=== PATIENT | female | born 1945 | race Caucasian/White ===

== ENCOUNTER 2017-04-08 16:55 | Emergency (ER) | payer OTHER ==
[2017-04-08 17:03] VITALS: BP 122/78; PULSE 58; TEMP 98.3; BMI 29.2
--- NOTE | 2017-04-08 17:16 | PDOC ---
History of Present Illness <Annalisa Mata - Last Filed: 04/08/17 18:22> - History of Present Illness Initial Comments: 04/08/17 18:27 "The patient is a 72 year old female, with a significant past medical history of HTN, acid reflux, and kyphoscoliosis, who was BIBA from [facility] to the emergency department with right ankle pain and swelling s/p fall. Patient reports she was coming out of the restroom when she slipped and fell landing on her buttocks. Patient is currently complaining of right ankle pain and swelling. Pt was able to ambulate with assistance after the fall. She also complains of a slight headache without nausea or vomiting. She denies hitting her head or LOC. She denies recent fevers, chills, headache or dizziness. She denies recent nausea, vomit, diarrhea or constipation. She denies recent dysuria, frequency, urgency or hematuria. She denies recent chest pain or shortness of breath. Allergies: Lisinopril Social history: Nonsmoker. Denies EtOH use and recreational drug use. " <Matt Phillips - Last Filed: 04/08/17 18:52> - General Chief Complaint: Pain, Acute Stated Complaint: RIGHT ANKLE PAIN Time Seen by Provider: 04/08/17 17:01 Past History <Annalisa Mata - Last Filed: 04/08/17 18:22> - Past Medical History Cardiac Disorders: Yes (BRADYCARDIA) Hypercholesterolemia: Yes Psychiatric Problems: Yes - Suicide/Smoking/Psychosocial Hx Smoking History: Never smoked Hx Alcohol Use: No Drug/Substance Use Hx: No Substance Use Type: None <Matt Phillips - Last Filed: 04/08/17 18:52> - Past Medical History Allergies/Adverse Reactions: Allergies Allergy/AdvReac Type Severity Reaction Status Date / Time lisinopril Allergy Verified 04/08/17 16:57 Review of Systems - Review of Systems Comments:: 04/08/17 17:13 "GENERAL/CONSTITUTIONAL: No fever or chills. No weakness. HEAD, EYES, EARS, NOSE AND THROAT: No change in vision. No ear pain or discharge. No sore throat. CARDIOVASCULAR: No chest pain or shortness of breath. RESPIRATORY: No cough, wheezing, or hemoptysis. GASTROINTESTINAL: No nausea, vomiting, diarrhea or constipation. GENITOURINARY: No dysuria, frequency, or change in urination. MUSCULOSKELETAL: + R ankle pain, No neck or back pain. SKIN: No rash NEUROLOGIC: No headache, vertigo, loss of consciousness, or change in strength/ sensation. ENDOCRINE: No increased thirst. No abnormal weight change. HEMATOLOGIC/LYMPHATIC: No anemia, easy bleeding, or history of blood clots. ALLERGIC/IMMUNOLOGIC: No hives or skin allergy. " <AlanMatt - Last Filed: 04/08/17 18:52> *Physical Exam - Vital Signs Last Vital Signs Temp Pulse Resp BP Pulse Ox 98.3 F 58 L 16 122/78 96 04/08/17 16:57 04/08/17 16:57 04/08/17 16:57 04/08/17 16:57 04/08/17 16:57 <Annalisa Mata - Last Filed: 04/08/17 18:22> - Vital Signs Last Vital Signs Temp Pulse Resp BP Pulse Ox 98.3 F 58 L 16 122/78 96 04/08/17 16:57 04/08/17 16:57 04/08/17 16:57 04/08/17 16:57 04/08/17 16:57 - Physical Exam Comments: 04/08/17 17:13 "GENERAL: Awake, alert, and fully oriented, in no acute distress HEAD: No signs of trauma EYES: PERRLA, EOMI, sclera anicteric, conjunctiva clear ENT: Auricles normal inspection, hearing grossly normal, nares patent, oropharynx clear without exudates. Moist mucosa NECK: severe kyphoscoliosis, Nontender, no stepoffs, Normal ROM, supple, no lymphadenopathy, JVD, or masses LUNGS: Breath sounds equal, clear to auscultation bilaterally. No wheezes, and no crackles HEART: Regular rate and rhythm, normal S1 and S2, no murmurs, rubs or gallops ABDOMEN: Soft, nontender, normoactive bowel sounds. No guarding, no rebound. No masses EXTREMITIES: R ankle with mild tenderness posterior to lateral malleolus, no obvious deformity, L ankle wnl, full range of motion of all extremities NEUROLOGICAL: Cranial nerves II through XII intact. 5/5 strength and sensation in all extremities, Normal speech, normal gait SKIN: Warm, Dry, normal turgor, no rashes or lesions noted. " <Matt Phillips - Last Filed: 04/08/17 18:52> Procedures - Splinting Splint Location: Right: Knee Pre-Proc Neuro Vasc Exam: normal Hand-Made Type: fiberglass Splint Type: Yes: Short Leg Post-Proc Neuro Vasc Exam: normal [place] Bandage: yes, 3" Complications: No Post splint xray: No <Matt Phillips - Last Filed: 04/08/17 18:52> ED Treatment Course - RADIOLOGY Radiology Studies Ordered: Category Date Time Status HEAD CT WITHOUT CONTRAST [CT] Stat CT Scan 04/08/17 17:11 Ordered ANKLE & FOOT-RIGHT* [RAD] Stat Radiology 04/08/17 17:11 Ordered CHEST PA & LAT [RAD] Stat Radiology 04/08/17 17:10 Ordered PELVIS [RAD] Stat Radiology 04/08/17 17:10 Ordered <Matt Phillips - Last Filed: 04/08/17 18:52> Medical Decision Making - Medical Decision Making 04/08/17 17:14 72 F presenting with R ankle pain s/p mechanical fall. Pt with full ROM and no obvious deformity. Possible ankle fx vs sprain. Pt with no signs of head trauma or c spine injury. - XR ankle, chest, pelvis - CT head 04/08/17 18:49 XR shows R distal fibula fx with minimal displacement. Pt placed in short-leg posterior splint. Instructions given to f/u with orthopedics clinic. Dispo pending [facility]. Case discussed in detail with oncoming Emergency Physician including history, physical exam and ancillary studies. Oncoming Emergency Physician has assumed care for the patient and will complete the evaluation and treatment. Patient is aware of the plan. <Matt Phillips - Last Filed: 04/08/17 18:52> *DC/Admit/Observation/Transfer - Attestations Scribe Attestion: 04/08/17 18:22 Documentation prepared by Annalisa Mata, acting as medical surgery nurse for Matt Phillips MD. <Annalisa Mata - Last Filed: 04/08/17 18:22> <Matt Phillips - Last Filed: 04/08/17 18:52> Diagnosis at time of Disposition: Fracture of lateral malleolus - Discharge Dispostion Condition at time of disposition: Stable - Referrals Referrals: Matt Vieyra MD [Staff Physician] - - Patient Instructions Printed Discharge Instructions: DI for Ankle Fracture Additional Instructions: You have an ankle fracture. You must follow up with an orthopedic surgeon as soon as possible. Call the number provided to make an appointment with our orthopedics clinic this week. If you experience worsening pain, swelling, numbness, or any other concerning symptoms, return to the ER immediately.
--- NOTE | 2017-04-08 20:19 | PDOC ---
*Physical Exam - Vital Signs Last Vital Signs Temp Pulse Resp BP Pulse Ox 98.3 F 58 L 16 122/78 96 04/08/17 16:57 04/08/17 16:57 04/08/17 16:57 04/08/17 16:57 04/08/17 16:57 Progress Note - Progress Note Progress Note: CT of head interpreted by Dr. Barnhart: No gross evidence of acute intracranial pathology. Incidental note of a 7 mm density in right external auditory canal (thought to likely represent debris but correlation with ENT suggested) Examination of right ear reveals cerumen in the external auditory canal. Results discussed with the patient. She states that she has an ear nose and throat doctor in [place]. She should follow-up with orthopedic doctor ( Dr. Vieyra referral given) as well as her ENT doctor *DC/Admit/Observation/Transfer Diagnosis at time of Disposition: Lateral malleolar fracture - Discharge Dispostion Disposition: HOME Condition at time of disposition: Stable - Referrals Referrals: Matt Vieyra MD [Staff Physician] - - Patient Instructions Printed Discharge Instructions: DI for Ankle Fracture Additional Instructions: You have an ankle fracture. You must follow up with an orthopedic surgeon as soon as possible. Call the number provided to make an appointment with our orthopedics clinic this week. Do not attend day program until seen by orthopedist Tylenol as needed for pain/walker as needed for ambulation If you experience worsening pain, swelling, numbness, or any other concerning symptoms, return to the ER immediately. Followup with your ear/nose/throat doctor to evaluate ear canals - Post Discharge Activity
== END 2017-04-08 20:28 | disposition home or self-care (01) ==
LOC: FER 16:55
PROC: 2W3QX1Z Immobilization of Right Lower Leg using Splint (ICD-10-PCS; principal; 2017-04-08)
DX: S82.61XA Displaced fracture of lateral malleolus of right fibula, initial encounter for closed fracture (principal); W18.39XA Other fall on same level, initial encounter; Y93.89 Activity, other specified; Y92.129 Unspecified place in nursing home as the place of occurrence of the external cause; I10 Essential (primary) hypertension; K21.9 Gastro-esophageal reflux disease without esophagitis; F99 Mental disorder, not otherwise specified; E78.00 Pure hypercholesterolemia, unspecified
CPT/HCPCS: 29515; 70450-TC; 71010-TC; 72170-TC; 73610-TC-RT; 73630-TC-RT; 99281-25

== ENCOUNTER 2023-09-02 19:24 | Inpatient (IN) | payer OTHER ==
[2023-09-02 19:47] VITALS: BMI 30.2
[2023-09-02 22:15] LABS: HEMATOCRIT 39.9 % (32.4-45.2); HEMOGLOBIN 13.1 GM/dL (10.7-15.3); MCH 28.8 pg (25.7-33.7); MCHC 32.8 g/dl (32.0-36.0); MEAN PLT VOLUME 6.1 fl (7.5-11.1); PLATELET COUNT 210 10^3/uL (134-434); RBC 4.54 M/mm3 (3.60-5.2); RDW 14.1 % (11.6-15.6)
[2023-09-02 22:19] LABS: POTASSIUM 4.3 mmol/L (3.5-5.1)
[2023-09-02 22:21] LABS: CALCIUM 9.4 mg/dL (8.5-10.1)
[2023-09-02 22:22] LABS: ALBUMIN 3.5 g/dl (3.4-5.0); BLOOD UREA NITROGEN 17.4 mg/dL (7-18)
[2023-09-02 22:25] LABS: CREATININE 0.9 mg/dL (0.55-1.3)
[2023-09-02 22:26] LABS: BILIRUBIN,TOTAL 0.4 mg/dL (0.2-1)
[2023-09-02 22:41] LABS: ANISOCYTOSIS 1+; MACROCYTOSIS 0; OVALOCYTE 1+
[2023-09-03 00:43] LABS: INR 1.01 (0.83-1.09); PROTHROMBIN TIME (PATIENT) 11.7 SEC (9.7-13.0)
[2023-09-03 00:45] LABS: ACTIVATED PTT 27.7 SECONDS (25.2-36.5)
[2023-09-03] MEDS: AMPICILLIN NA/SULBACTAM NA 1.5 GM in SODIUM CHLORIDE 100 ML IVPB ONE (01:23)
[2023-09-03] MEDS: AMPICILLIN NA/SULBACTAM NA 3 GM in DEXTROSE 5%-WATER 100 ML IVPB STA (01:28)
[2023-09-03] MEDS ORDERED: AMPICILLIN NA/SULBACTAM NA 3 GM/100 ML BAG IVPB ONE ×4 (01:29→19:54)
[2023-09-03] MEDS: DEXTROSE 5%-0.45% SALINE 1,000 ML IV SCH (04:09)
[2023-09-03] MEDS ORDERED: levETIRAcetam 500 MG/5 ML INJECTION VIAL IVPB ONE ×2 (09:01→19:53)
[2023-09-03] MEDS ORDERED: ACETAMINOPHEN INJECTION 100 ML IVPB ONE ×2 (09:01→19:54)
[2023-09-03] MEDS ORDERED: PANTOPRAZOLE SODIUM 40 MG VIAL ONE (09:02)
[2023-09-03] MEDS: AMPICILLIN NA/SULBACTAM NA 3 GM in DEXTROSE 5%-WATER 100 ML IVPB SCH (09:20)
[2023-09-03] MEDS: ACETAMINOPHEN 1000 MG/100 ML BAG IVPB PRN (09:25)
[2023-09-03] MEDS: levETIRAcetam 500 MG/5 ML INJECTION VIAL IVPB SCH (10:19)
[2023-09-03] MEDS: PANTOPRAZOLE SODIUM 40 MG VIAL IVPUSH SCH (10:19)
[2023-09-03 12:01] LABS: BASO % 0.3 % (0-2.0); EOS % 0.2 % (0-4.5); HEMATOCRIT 37.3 % (32.4-45.2); HEMOGLOBIN 12.3 GM/dL (10.7-15.3); MCH 29.1 pg (25.7-33.7); MEAN CELL VOLUME 88.2 fl (80-96); MEAN PLT VOLUME 6.7 fl (7.5-11.1); MONO % 6.1 % (3.8-10.2); NEUT % 83.4 % (42.8-82.8); PLATELET COUNT 186 10^3/uL (134-434); RBC 4.23 M/mm3 (3.60-5.2); RDW 14.2 % (11.6-15.6); WHITE BLOOD COUNT 7.2 K/mm3 (4.0-10.0)
[2023-09-03 12:12] LABS: POTASSIUM 3.9 mmol/L (3.5-5.1)
[2023-09-03 12:25] LABS: BLOOD UREA NITROGEN 18.9 mg/dL (7-18); CALCIUM 9.2 mg/dL (8.5-10.1)
[2023-09-03 12:28] LABS: CREATININE 0.6 mg/dL (0.55-1.3); PHOSPHOROUS 3.4 mg/dL (2.5-4.9)
[2023-09-03 12:30] LABS: MAGNESIUM 2.2 mg/dL (1.8-2.4)
[2023-09-03] MEDS: ALBUTEROL SO4 2.5/IPRATROPIUM 0.5 INH SOL 3 ML VIAL.NEB. NEB SCH (15:00)
[2023-09-03] MEDS ORDERED: ALBUTEROL SO4 2.5/IPRATROPIUM 0.5 INH SOL 3 ML VIAL.NEB. NEB ONE ×2 (15:01→19:53)
[2023-09-04] MEDS ORDERED: AMPICILLIN NA/SULBACTAM NA 3 GM/100 ML BAG IVPB ONE ×2 (02:32→08:03)
[2023-09-04 07:15] LABS: BASO % 0.4 % (0-2.0); EOS % 0.2 % (0-4.5); HEMATOCRIT 36.4 % (32.4-45.2); LYMPH % 11.6 % (8-40); MCH 29.2 pg (25.7-33.7); MCHC 33.1 g/dl (32.0-36.0); MEAN CELL VOLUME 88.2 fl (80-96); MEAN PLT VOLUME 6.3 fl (7.5-11.1); MONO % 7.4 % (3.8-10.2); NEUT % 80.4 % (42.8-82.8); PLATELET COUNT 169 10^3/uL (134-434); RBC 4.12 M/mm3 (3.60-5.2); RDW 13.9 % (11.6-15.6); WHITE BLOOD COUNT 6.7 K/mm3 (4.0-10.0)
[2023-09-04 07:42] LABS: POTASSIUM 3.6 mmol/L (3.5-5.1)
[2023-09-04 07:45] LABS: CALCIUM 8.5 mg/dL (8.5-10.1)
[2023-09-04 07:46] LABS: BLOOD UREA NITROGEN 15.8 mg/dL (7-18)
[2023-09-04 07:49] LABS: CREATININE 0.5 mg/dL (0.55-1.3)
[2023-09-04 07:50] LABS: BILIRUBIN,TOTAL 0.5 mg/dL (0.2-1)
[2023-09-04] MEDS ORDERED: ALBUTEROL SO4 2.5/IPRATROPIUM 0.5 INH SOL 3 ML VIAL.NEB. NEB ONE (08:01)
[2023-09-04] MEDS: ENOXAPARIN NA (PORCINE) 40 MG/0.4 ML DISP.SYRIN SQ SCH (10:49)
[2023-09-04] MEDS: lamoTRIgine 100 MG TABLET PO SCH (21:59)
[2023-09-04] MEDS: ARIPiprazole 15 MG TABLET PO SCH (21:59)
[2023-09-04] MEDS: DOCUSATE SODIUM 100 MG CAPSULE (FP) PO SCH (21:59)
[2023-09-04] MEDS: ATORVASTATIN CA 10 MG TABLET (FP) PO SCH (22:00)
[2023-09-04] MEDS: levETIRAcetam 500 MG TABLET (FP) PO SCH (22:01)
[2023-09-04] MEDS: TOPIRAMATE 100 MG TABLET PO SCH (22:01)
[2023-09-05] MEDS: POTASSIUM CHLORIDE TABS 20 MEQ TABLET.ER (FP) PO SCH (10:17)
[2023-09-05] MEDS: PANTOPRAZOLE 40 MG TABLET PO SCH (10:17)
[2023-09-05] MEDS: ASPIRIN COATED 81 MG TABLET.EC PO SCH (10:17)
[2023-09-05] MEDS: FUROSEMIDE 40 MG TABLET (FP) PO SCH (10:17)
[2023-09-05] MEDS: POLYETHYLENE GLYCOL (HEALTHYLAX) 3350 17 GM PACKET PO SCH (21:58)
[2023-09-06 14:53] VITALS: RESP 18
[2023-09-06 20:15] VITALS: BP 102/60; PULSE 72; TEMP 97.4
== END 2023-09-07 04:37 | DRG 178 ==
LOC: JER 19:24 → JERBED 09-03 00:01 → OBSVTOIN 09-04 08:40 → J4S 09-04 09:52
PROVIDERS: ADMIT Internal Medicine; ATTEND Internal Medicine
DX: J69.0 Pneumonitis due to inhalation of food and vomit (principal); I24.89 Other forms of acute ischemic heart disease; T17.500A Unspecified foreign body in bronchus causing asphyxiation, initial encounter; E78.5 Hyperlipidemia, unspecified; I10 Essential (primary) hypertension; G40.909 Epilepsy, unspecified, not intractable, without status epilepticus; F20.9 Schizophrenia, unspecified; K21.9 Gastro-esophageal reflux disease without esophagitis; F03.90 Unspecified dementia, unspecified severity, without behavioral disturbance, psychotic disturbance, mood disturbance, and anxiety; E04.1 Nontoxic single thyroid nodule; F32.A Depression, unspecified; M84.48XG Pathological fracture, other site, subsequent encounter for fracture with delayed healing; K44.9 Diaphragmatic hernia without obstruction or gangrene; R79.89 Other specified abnormal findings of blood chemistry; Z99.3 Dependence on wheelchair; Z85.3 Personal history of malignant neoplasm of breast
CPT/HCPCS: 36415; 70450-TC; 70490-TC; 71250-TC; 74230-TC-FY; 80048; 80053; 83735; 84100; 84484; 85025; 85610; 85730; 86850; 86900; 86901; 87635; 92611-GN; 93005; 93010; 94640; 99285-25; G0378; J0131

== ENCOUNTER 2024-09-06 11:46 | Inpatient (IN) | payer OTHER ==
[2024-09-06 13:07] LABS: VENOUS BASE EXCESS -3.1 mmol/L (-2-2); VENOUS O2 SATURATION 95.4 % (70-80); VENOUS PCO2 40.6 mmHg (38-52); VENOUS PH 7.355 (7.310-7.410)
[2024-09-06] MEDS ORDERED: ACETAMINOPHEN INJECTION 100 ML ONE (13:14)
[2024-09-06] MEDS: SODIUM CHLORIDE 0.9% 500 ML INFUS.BAG IV ONE ×2 (13:15→14:24)
[2024-09-06 13:20] LABS: HEMATOCRIT 34.9 % (32.4-45.2); HEMOGLOBIN 11.5 GM/dL (10.7-15.3); MCHC 32.8 g/dl (32.0-36.0); MEAN CELL VOLUME 85.4 fl (80-96); MEAN PLT VOLUME 6.8 fl (7.5-11.1); PLATELET COUNT 265 10^3/uL (134-434); RBC 4.09 M/mm3 (3.60-5.2); RDW 14.8 % (11.6-15.6); WHITE BLOOD COUNT 16.4 K/mm3 (4.0-10.0)
[2024-09-06 13:23] LABS: INR 1.09 (0.83-1.09); PROTHROMBIN TIME (PATIENT) 11.9 SEC (9.7-13.0)
[2024-09-06 13:25] LABS: ACTIVATED PTT 30.3 SECONDS (25.2-36.5)
[2024-09-06] MEDS: ACETAMINOPHEN 1000 MG/100 ML BAG IVPB ONE (13:33)
[2024-09-06 13:44] LABS: CHLORIDE 111 mmol/L (98-107); SODIUM 144 mmol/L (136-145)
[2024-09-06 13:45] LABS: ANISOCYTOSIS 0; MACROCYTOSIS 0
[2024-09-06 13:46] LABS: CALCIUM 8.5 mg/dL (8.5-10.1)
[2024-09-06 13:47] LABS: ALBUMIN 3.1 g/dl (3.4-5.0); BLOOD UREA NITROGEN 35.9 mg/dL (7-18); CO2 24 mmol/L (21-32); GLUCOSE,RANDOM 120 mg/dL (74-106)
[2024-09-06 13:50] LABS: ANION GAP 9 mmol/L (4-13); CREATININE 0.8 mg/dL (0.55-1.3); POTASSIUM 2.9 mmol/L (3.5-5.1); SGOT/AST 30 U/L (15-37); SGPT/ALT 21 U/L (13-61)
[2024-09-06 13:51] LABS: BILIRUBIN,TOTAL 0.3 mg/dL (0.2-1)
[2024-09-06 13:52] LABS: TOT PROT 6.7 g/dl (6.4-8.2)
[2024-09-06 13:53] LABS: ALK PHOS 94 U/L (45-117)
[2024-09-06] MEDS ORDERED: PIPERACILLIN/TAZOB 3.375 GM 3.375 GM/50 ML BAG IVPB ONE ×2 (14:01→20:23)
[2024-09-06] MEDS: PIPERACILLIN/TAZOB 3.375 GM 3.375 GM in DEXTROSE 5%-WATER - 50 ML IVPB ONE (14:11)
[2024-09-06] MEDS: KCL 10 MEQ IVPB 10 MEQ/100 ML INFUS.BAG IVPB SCH ×2 (14:25→15:55)
[2024-09-06] MEDS ORDERED: PIPERACILLIN/TAZOB 3.375 GM 3.375 GM in DEXTROSE 5%-WATER - 50 ML IVPB SCH (18:00)
[2024-09-06] MEDS: D5-1/2NS+10 MEQ KCL - 10 MEQ/1,000 ML INFUS.BAG IV SCH (20:08)
[2024-09-06 20:21] LABS: EPI CELLS 12 /uL (0-25.1); HYALINE CASTS 1 /uL (0-3.1); PH,URINE 5.5 (5.0-8.0); URINE APPEARANCE TURBID; URINE BACTERIA 4134 /uL (0-1359); URINE BILIRUBIN NEGATIVE (NEGATIVE); URINE COLOR YELLOW; URINE GLUCOSE (UA) NEGATIVE (NEGATIVE); URINE KETONE NEGATIVE (NEGATIVE); URINE LEUK ESTERASE 2+ (NEGATIVE); URINE NITRITE POSITIVE (NEGATIVE); URINE PROTEIN 1+ (NEGATIVE); URINE UROBILINOGEN 0.2 mg/dL (0.2-1.0); URINE WBC 2724 /uL (0-25.8)
[2024-09-06] MEDS: PIPERACILLIN/TAZOB 3.375 GM 3.375 GM in DEXTROSE 5%-WATER - 50 ML IVPB SCH (20:30)
[2024-09-06] MEDS: CEFTRIAXONE 1 GM in DEXTROSE 5%-WATER - 100 ML IVPB ONE (20:31)
[2024-09-06 21:06] LABS: URINE RBC 40.1 /uL (0-23.9)
[2024-09-06] MEDS ORDERED: levETIRAcetam 500 MG/5 ML INJECTION VIAL IVPB ONE (21:20)
[2024-09-06] MEDS: levETIRAcetam 500 MG/5 ML INJECTION VIAL IVPB SCH (21:28)
[2024-09-06] MEDS: AZITHROMYCIN IVPB 500 MG in DEXTROSE 5%-WATER - 250 ML IVPB ONE (21:30)
[2024-09-07] MEDS ORDERED: LORazepam 2 MG/ML SDV VIAL ONE (02:06)
[2024-09-07] MEDS: LORazepam 2 MG/ML SDV VIAL IVPUSH ONE (02:14)
[2024-09-07 07:58] LABS: HEMATOCRIT 30.3 % (32.4-45.2); MCH 28.6 pg (25.7-33.7); MEAN CELL VOLUME 86.7 fl (80-96); MEAN PLT VOLUME 6.6 fl (7.5-11.1); PLATELET COUNT 226 10^3/uL (134-434); RDW 15.1 % (11.6-15.6); WHITE BLOOD COUNT 11.2 K/mm3 (4.0-10.0)
[2024-09-07 08:18] LABS: CHLORIDE 114 mmol/L (98-107); SODIUM 146 mmol/L (136-145)
[2024-09-07 08:20] LABS: CALCIUM 8.4 mg/dL (8.5-10.1)
[2024-09-07 08:21] LABS: ALBUMIN 2.8 g/dl (3.4-5.0); BLOOD UREA NITROGEN 28.7 mg/dL (7-18); CO2 24 mmol/L (21-32); GLUCOSE,RANDOM 107 mg/dL (74-106)
[2024-09-07 08:24] LABS: ANION GAP 7 mmol/L (4-13); CREATININE 0.5 mg/dL (0.55-1.3); POTASSIUM 2.7 mmol/L (3.5-5.1); SGOT/AST 30 U/L (15-37); SGPT/ALT 21 U/L (13-61)
[2024-09-07 08:25] LABS: BILIRUBIN,TOTAL 0.3 mg/dL (0.2-1)
[2024-09-07 08:27] LABS: ALK PHOS 81 U/L (45-117)
[2024-09-07] MEDS: POTASSIUM CHLORIDE ORAL LIQUID 20 MEQ/15 ML PO ONE ×2 (09:00→17:23)
[2024-09-07] MEDS: KCL 10 MEQ IVPB 10 MEQ/100 ML INFUS.BAG IVPB SCH ×2 (09:03→17:23)
[2024-09-07] MEDS: ENOXAPARIN NA (PORCINE) 40 MG/0.4 ML DISP.SYRIN SQ SCH (10:18)
[2024-09-07 13:21] LABS: MAGNESIUM 2.1 mg/dL (1.8-2.4)
[2024-09-07 16:11] LABS: CHLORIDE 114 mmol/L (98-107); SODIUM 143 mmol/L (136-145)
[2024-09-07 16:13] LABS: CALCIUM 8.3 mg/dL (8.5-10.1)
[2024-09-07 16:14] LABS: BLOOD UREA NITROGEN 22.4 mg/dL (7-18); CO2 22 mmol/L (21-32); GLUCOSE,RANDOM 134 mg/dL (74-106)
[2024-09-07 16:17] LABS: ANION GAP 7 mmol/L (4-13); CREATININE 0.4 mg/dL (0.55-1.3); POTASSIUM 2.9 mmol/L (3.5-5.1)
[2024-09-07] MEDS: methylPREDNISolone NA SUCC 40 MG/1 ML VIAL IVPUSH SCH (19:18)
[2024-09-07] MEDS: lamoTRIgine 100 MG TABLET PO SCH (22:44)
[2024-09-07] MEDS: TOPIRAMATE 100 MG TABLET PO SCH (22:44)
[2024-09-07] MEDS: ARIPiprazole 15 MG TABLET PO SCH (22:45)
[2024-09-08 07:59] LABS: BASO % 0.1 % (0-2.0); HEMATOCRIT 31.7 % (32.4-45.2); HEMOGLOBIN 10.1 GM/dL (10.7-15.3); LYMPH % 5.8 % (8-40); MCHC 31.7 g/dl (32.0-36.0); MEAN CELL VOLUME 88.1 fl (80-96); MONO % 3.5 % (3.8-10.2); NEUT % 90.6 % (42.8-82.8); PLATELET COUNT 216 10^3/uL (134-434); RDW 15.1 % (11.6-15.6); WHITE BLOOD COUNT 9.7 K/mm3 (4.0-10.0)
[2024-09-08 08:10] LABS: POTASSIUM 3.5 mmol/L (3.5-5.1)
[2024-09-08 08:12] LABS: ALBUMIN 2.5 g/dl (3.4-5.0); BLOOD UREA NITROGEN 17.2 mg/dL (7-18); CALCIUM 8.5 mg/dL (8.5-10.1)
[2024-09-08 08:16] LABS: CREATININE 0.4 mg/dL (0.55-1.3)
[2024-09-08 08:17] LABS: BILIRUBIN,TOTAL 0.3 mg/dL (0.2-1); TOT PROT 5.9 g/dl (6.4-8.2)
[2024-09-08] MEDS: METOPROLOL TARTRATE 25 MG TABLET (FP) PO SCH (14:05)
[2024-09-08] MEDS: ONDANSETRON 4 MG/2 ML VIAL IVPUSH SCH (14:58)
[2024-09-08 15:05] VITALS: BMI 27.4
[2024-09-08] MEDS: METOPROLOL TARTRATE 25 MG TABLET (FP) PO ONE (17:44)
[2024-09-08] MEDS: METOPROLOL TARTRATE 50 MG TABLET (FP) PO SCH (21:51)
[2024-09-08] MEDS: ENOXAPARIN NA (PORCINE) 80 MG/0.8 ML DISP.SYRIN SQ SCH (21:52)
[2024-09-08] MEDS ORDERED: METOPROLOL TARTRATE 50 MG TABLET (FP) PO SCH (22:00)
[2024-09-09 07:49] LABS: POTASSIUM 3.1 mmol/L (3.5-5.1)
[2024-09-09 07:50] LABS: CALCIUM 8.4 mg/dL (8.5-10.1)
[2024-09-09 07:51] LABS: ALBUMIN 2.5 g/dl (3.4-5.0); BLOOD UREA NITROGEN 15.5 mg/dL (7-18); MAGNESIUM 1.7 mg/dL (1.8-2.4)
[2024-09-09 07:54] LABS: CREATININE 0.5 mg/dL (0.55-1.3)
[2024-09-09 07:56] LABS: BILIRUBIN,TOTAL 0.2 mg/dL (0.2-1); TOT PROT 6.2 g/dl (6.4-8.2)
[2024-09-09 08:23] LABS: BASO % 0.2 % (0-2.0); EOS % 0.2 % (0-4.5); HEMATOCRIT 30.9 % (32.4-45.2); HEMOGLOBIN 9.8 GM/dL (10.7-15.3); LYMPH % 11.1 % (8-40); MCH 27.5 pg (25.7-33.7); MCHC 31.9 g/dl (32.0-36.0); MEAN CELL VOLUME 86.3 fl (80-96); MEAN PLT VOLUME 7.2 fl (7.5-11.1); MONO % 6.4 % (3.8-10.2); NEUT % 82.1 % (42.8-82.8); PLATELET COUNT 290 10^3/uL (134-434); RBC 3.58 M/mm3 (3.60-5.2); RDW 14.9 % (11.6-15.6); WHITE BLOOD COUNT 12.1 K/mm3 (4.0-10.0)
[2024-09-09] MEDS: PIPERACILLIN/TAZOB 3.375 GM 50 ML IVPB SCH (10:20)
[2024-09-09] MEDS: KCL 10 MEQ IVPB 10 MEQ/100 ML INFUS.BAG IVPB SCH (15:08)
[2024-09-09] MEDS: VANCOMYCIN/WATER FOR INJ (PEG) 1 GM/200 ML BAG IVPB ONE (16:13)
[2024-09-09] MEDS: VANCOMYCIN 1 GM PREMIX (F) 1 GM/200 ML BAG IVPB ONE (16:16)
[2024-09-09] MEDS: POTASSIUM CHLORIDE ORAL LIQUID 20 MEQ/15 ML PO ONE (17:49)
[2024-09-09] MEDS: APIXABAN 5 MG TABLET PO SCH (21:14)
[2024-09-09] MEDS: levETIRAcetam 500 MG TABLET (FP) PO SCH (21:14)
[2024-09-10 12:00] LABS: POTASSIUM 3.4 mmol/L (3.5-5.1)
[2024-09-10 12:02] LABS: ALBUMIN 2.6 g/dl (3.4-5.0); CALCIUM 8.3 mg/dL (8.5-10.1)
[2024-09-10 12:03] LABS: BLOOD UREA NITROGEN 12.8 mg/dL (7-18)
[2024-09-10 12:06] LABS: CREATININE 0.4 mg/dL (0.55-1.3)
[2024-09-10 12:07] LABS: TOT PROT 6.2 g/dl (6.4-8.2)
[2024-09-10 12:10] LABS: BILIRUBIN,TOTAL 0.3 mg/dL (0.2-1)
[2024-09-10 13:20] LABS: BASO % 0.4 % (0-2.0); EOS % 0.1 % (0-4.5); HEMATOCRIT 30.9 % (32.4-45.2); HEMOGLOBIN 9.9 GM/dL (10.7-15.3); LYMPH % 9.6 % (8-40); MCH 27.7 pg (25.7-33.7); MCHC 32.1 g/dl (32.0-36.0); MEAN CELL VOLUME 86.1 fl (80-96); MEAN PLT VOLUME 7.1 fl (7.5-11.1); MONO % 9.1 % (3.8-10.2); NEUT % 80.8 % (42.8-82.8); PLATELET COUNT 308 10^3/uL (134-434); RBC 3.59 M/mm3 (3.60-5.2); RDW 14.9 % (11.6-15.6); WHITE BLOOD COUNT 13.9 K/mm3 (4.0-10.0)
[2024-09-12] MEDS: ACETAMINOPHEN 1000 MG/100 ML BAG IVPB ONE ×2 (06:25→22:49)
[2024-09-12 08:49] LABS: BASO % 0.5 % (0-2.0); HEMATOCRIT 29.7 % (32.4-45.2); HEMOGLOBIN 9.6 GM/dL (10.7-15.3); LYMPH % 9.5 % (8-40); MCH 27.5 pg (25.7-33.7); MCHC 32.4 g/dl (32.0-36.0); MEAN CELL VOLUME 84.9 fl (80-96); MEAN PLT VOLUME 6.8 fl (7.5-11.1); PLATELET COUNT 435 10^3/uL (134-434); RDW 14.9 % (11.6-15.6); WHITE BLOOD COUNT 15.2 K/mm3 (4.0-10.0)
[2024-09-12 09:48] LABS: CHLORIDE 110 mmol/L (98-107); SODIUM 146 mmol/L (136-145)
[2024-09-12 10:01] LABS: CALCIUM 8.7 mg/dL (8.5-10.1)
[2024-09-12 10:02] LABS: ALBUMIN 2.8 g/dl (3.4-5.0); BLOOD UREA NITROGEN 19.2 mg/dL (7-18); CO2 27 mmol/L (21-32); GLUCOSE,RANDOM 123 mg/dL (74-106)
[2024-09-12 10:05] LABS: CREATININE 0.5 mg/dL (0.55-1.3); SGOT/AST 19 U/L (15-37); SGPT/ALT 19 U/L (13-61)
[2024-09-12 10:06] LABS: BILIRUBIN,TOTAL 0.5 mg/dL (0.2-1); TOT PROT 6.5 g/dl (6.4-8.2)
[2024-09-12 10:08] LABS: ALK PHOS 85 U/L (45-117)
[2024-09-12] MEDS: METOPROLOL TARTRATE 25 MG TABLET (FP) PO ONE (10:59)
[2024-09-12 11:04] LABS: ANION GAP 9 mmol/L (4-13); POTASSIUM 2.8 mmol/L (3.5-5.1)
[2024-09-12] MEDS ORDERED: MAGNESIUM SULF 50% (8.12 MEQ/2 ML-1 GM VIAL) IVPB ONE (12:15)
[2024-09-12] MEDS: POTASSIUM CHLORIDE ORAL LIQUID 20 MEQ/15 ML PO SCH (14:37)
[2024-09-12] MEDS: MAGNESIUM SULFATE IN WATER 2 GM/50 ML IVPB IVPB ONE (14:38)
[2024-09-12] MEDS: METOPROLOL TARTRATE 25 MG TABLET (FP) PO SCH (21:32)
[2024-09-13 00:20] LABS: BASO % 0.1 % (0-2.0); HEMATOCRIT 30.5 % (32.4-45.2); HEMOGLOBIN 9.7 GM/dL (10.7-15.3); LYMPH % 10.4 % (8-40); MCH 27.7 pg (25.7-33.7); MCHC 31.8 g/dl (32.0-36.0); MEAN PLT VOLUME 6.9 fl (7.5-11.1); MONO % 5.5 % (3.8-10.2); PLATELET COUNT 616 10^3/uL (134-434); RBC 3.51 M/mm3 (3.60-5.2); RDW 15.1 % (11.6-15.6); WHITE BLOOD COUNT 15.6 K/mm3 (4.0-10.0)
[2024-09-13] MEDS: dilTIAZem HCL 50 MG/10 ML - 10 ML VIAL IVPUSH ONE (00:20)
[2024-09-13] MEDS: levETIRAcetam 500 MG/5 ML INJECTION VIAL IVPB ONE (00:27)
[2024-09-13 00:55] LABS: POTASSIUM 3.7 mmol/L (3.5-5.1)
[2024-09-13 00:56] LABS: CALCIUM 8.7 mg/dL (8.5-10.1)
[2024-09-13 00:58] LABS: BLOOD UREA NITROGEN 23.4 mg/dL (7-18)
[2024-09-13 01:00] LABS: CREATININE 0.9 mg/dL (0.55-1.3)
[2024-09-13 01:02] LABS: BILIRUBIN,TOTAL 0.3 mg/dL (0.2-1); TOT PROT 7.2 g/dl (6.4-8.2)
[2024-09-13 01:11] LABS: ARTERIAL BLD GAS O2 SATURATION 90.1 % (95-98); ARTERIAL BLOOD GAS BASE EXCESS 0.7 mmol/L (-2-2); ARTERIAL BLOOD GAS PO2 61.3 mmHg (80-100)
[2024-09-13 01:12] LABS: ALLENS TEST POSITIVE
[2024-09-13 01:18] LABS: LACTIC ACID 3.9 mmol/L (0.4-2.0)
[2024-09-13 04:37] LABS: BASO % 0.1 % (0-2.0); HEMATOCRIT 27.8 % (32.4-45.2); LYMPH % 7.9 % (8-40); MCH 27.6 pg (25.7-33.7); MCHC 32.3 g/dl (32.0-36.0); MEAN CELL VOLUME 85.5 fl (80-96); MEAN PLT VOLUME 6.7 fl (7.5-11.1); MONO % 5.5 % (3.8-10.2); NEUT % 86.5 % (42.8-82.8); PLATELET COUNT 490 10^3/uL (134-434); RBC 3.25 M/mm3 (3.60-5.2); RDW 14.9 % (11.6-15.6); WHITE BLOOD COUNT 13.1 K/mm3 (4.0-10.0)
[2024-09-13] MEDS: FUROSEMIDE 40 MG/4 ML INJECTABLE VIAL IVPUSH ONE (05:25)
[2024-09-13 05:43] LABS: ALBUMIN 2.9 g/dl (3.4-5.0); BLOOD UREA NITROGEN 24.7 mg/dL (7-18); CALCIUM 8.7 mg/dL (8.5-10.1)
[2024-09-13 05:46] LABS: CREATININE 0.6 mg/dL (0.55-1.3)
[2024-09-13 05:47] LABS: BILIRUBIN,TOTAL 0.2 mg/dL (0.2-1)
[2024-09-13 05:49] LABS: TOT PROT 6.8 g/dl (6.4-8.2)
[2024-09-13] MEDS: KCL 10 MEQ IVPB 10 MEQ/100 ML INFUS.BAG IVPB SCH (05:53)
[2024-09-13 07:30] LABS: MAGNESIUM 2.1 mg/dL (1.8-2.4)
[2024-09-13] MEDS: FUROSEMIDE 40 MG/4 ML INJECTABLE VIAL IVPUSH SCH (09:36)
[2024-09-13] MEDS ORDERED: FUROSEMIDE 40 MG/4 ML INJECTABLE VIAL IVPUSH SCH (10:00)
[2024-09-14 08:03] LABS: BASO % 0.2 % (0-2.0); EOS % 0.1 % (0-4.5); HEMATOCRIT 32.2 % (32.4-45.2); HEMOGLOBIN 10.4 GM/dL (10.7-15.3); MCH 27.8 pg (25.7-33.7); MCHC 32.3 g/dl (32.0-36.0); MEAN CELL VOLUME 86.2 fl (80-96); MEAN PLT VOLUME 6.6 fl (7.5-11.1); MONO % 7.9 % (3.8-10.2); NEUT % 82.8 % (42.8-82.8); PLATELET COUNT 575 10^3/uL (134-434); RBC 3.74 M/mm3 (3.60-5.2); RDW 14.5 % (11.6-15.6); WHITE BLOOD COUNT 11.9 K/mm3 (4.0-10.0)
[2024-09-14 08:46] LABS: ALBUMIN 3.2 g/dl (3.4-5.0); BLOOD UREA NITROGEN 21.6 mg/dL (7-18); CALCIUM 9.3 mg/dL (8.5-10.1)
[2024-09-14 08:48] LABS: CREATININE 0.6 mg/dL (0.55-1.3)
[2024-09-14 08:50] LABS: BILIRUBIN,TOTAL 0.5 mg/dL (0.2-1); TOT PROT 7.7 g/dl (6.4-8.2)
[2024-09-14] MEDS: POTASSIUM CHLORIDE ORAL LIQUID 20 MEQ/15 ML PO ONE (12:38)
[2024-09-14] MEDS: MELATONIN 5 MG TABLETS PO PRN (21:18)
[2024-09-15] MEDS ORDERED: ACETAMINOPHEN 1000 MG/100 ML BAG IVPB PRN (00:51)
[2024-09-15] MEDS: diphenhydrAMINE HCL 25 MG CAPSULE (FP) PO ONE (00:52)
[2024-09-15] MEDS: METOPROLOL TARTRATE 5 MG/5 ML VIAL IVPUSH PRN (01:33)
[2024-09-15] MEDS ORDERED: SODIUM CHLORIDE 500 ML IV STA (02:55)
[2024-09-15 13:18] LABS: POTASSIUM 4.3 mmol/L (3.5-5.1)
[2024-09-15 13:21] LABS: BLOOD UREA NITROGEN 38.1 mg/dL (7-18)
[2024-09-15 13:25] LABS: BILIRUBIN,TOTAL 0.4 mg/dL (0.2-1)
[2024-09-15 13:26] LABS: TOT PROT 7.4 g/dl (6.4-8.2)
[2024-09-15 13:30] LABS: N-TERMINAL BNP 7728.4 pg/ml (5-450)
[2024-09-15] MEDS: METOPROLOL TARTRATE 5 MG/5 ML VIAL IVPUSH SCH (19:33)
[2024-09-15] MEDS: SODIUM CHLORIDE 500 ML IV STA (21:12)
[2024-09-15 22:27] LABS: MAGNESIUM 2.2 mg/dL (1.8-2.4)
[2024-09-15 22:30] LABS: PHOSPHOROUS 4.6 mg/dL (2.5-4.9)
[2024-09-16] MEDS: diphenhydrAMINE HCL 25 MG CAPSULE (FP) PO ONE (01:35)
[2024-09-16 08:20] LABS: POTASSIUM 4.4 mmol/L (3.5-5.1)
[2024-09-16 08:28] LABS: ALBUMIN 2.8 g/dl (3.4-5.0); BLOOD UREA NITROGEN 40.2 mg/dL (7-18); CALCIUM 8.9 mg/dL (8.5-10.1)
[2024-09-16 08:32] LABS: CREATININE 0.9 mg/dL (0.55-1.3)
[2024-09-16 08:33] LABS: BILIRUBIN,TOTAL 0.2 mg/dL (0.2-1); TOT PROT 6.6 g/dl (6.4-8.2)
[2024-09-16] MEDS: dilTIAZem HCL 60 MG TABLET PO ONE (10:35)
[2024-09-16] MEDS: LORazepam 2 MG/ML SDV VIAL IVPUSH PRN (12:13)
[2024-09-16] MEDS: DEXTROSE 5%-WATER - 1,000 ML IV SCH (13:33)
[2024-09-16] MEDS: dilTIAZem HCL 60 MG TABLET PO SCH (14:24)
[2024-09-16] MEDS ORDERED: ACETAMINOPHEN 1000 MG/100 ML BAG IVPB PRN (14:26)
[2024-09-16] MEDS: METOPROLOL TARTRATE 50 MG TABLET (FP) PO SCH (22:13)
[2024-09-17] MEDS: METOPROLOL TARTRATE 5 MG/5 ML VIAL IVPUSH SCH (05:21)
[2024-09-17 08:15] LABS: POTASSIUM 3.8 mmol/L (3.5-5.1)
[2024-09-17 08:40] LABS: ALBUMIN 2.8 g/dl (3.4-5.0); CALCIUM 8.4 mg/dL (8.5-10.1)
[2024-09-17 08:41] LABS: BLOOD UREA NITROGEN 34.6 mg/dL (7-18)
[2024-09-17 08:45] LABS: BASO % 0.2 % (0-2.0); BILIRUBIN,TOTAL 0.4 mg/dL (0.2-1); CREATININE 0.7 mg/dL (0.55-1.3); EOS % 0.6 % (0-4.5); HEMATOCRIT 38.1 % (32.4-45.2); HEMOGLOBIN 11.1 GM/dL (10.7-15.3); LYMPH % 11.9 % (8-40); MCH 26.6 pg (25.7-33.7); MCHC 29.1 g/dl (32.0-36.0); MEAN CELL VOLUME 91.5 fl (80-96); MEAN PLT VOLUME 6.9 fl (7.5-11.1); MONO % 4.6 % (3.8-10.2); NEUT % 82.7 % (42.8-82.8); PLATELET COUNT 515 10^3/uL (134-434); RBC 4.17 M/mm3 (3.60-5.2); RDW 15.3 % (11.6-15.6); TOT PROT 6.6 g/dl (6.4-8.2); WHITE BLOOD COUNT 15.8 K/mm3 (4.0-10.0)
[2024-09-18] MEDS: AMOX TR/POT CLAV 875MG/125MG TABLETS (FP) PO SCH (19:43)
[2024-09-19] MEDS: LORazepam 2 MG/ML SDV VIAL IM PRN (11:00)
[2024-09-19 11:17] LABS: BASO % 0.1 % (0-2.0); EOS % 0.3 % (0-4.5); HEMATOCRIT 29.5 % (32.4-45.2); LYMPH % 7.3 % (8-40); MCH 27.4 pg (25.7-33.7); MCHC 30.7 g/dl (32.0-36.0); MEAN CELL VOLUME 89.2 fl (80-96); MEAN PLT VOLUME 6.8 fl (7.5-11.1); MONO % 5.2 % (3.8-10.2); NEUT % 87.1 % (42.8-82.8); PLATELET COUNT 429 10^3/uL (134-434); RBC 3.31 M/mm3 (3.60-5.2); RDW 14.7 % (11.6-15.6); WHITE BLOOD COUNT 14.1 K/mm3 (4.0-10.0)
[2024-09-19 11:38] LABS: POTASSIUM 3.2 mmol/L (3.5-5.1)
[2024-09-19 11:39] LABS: CALCIUM 8.6 mg/dL (8.5-10.1)
[2024-09-19 11:40] LABS: ALBUMIN 2.5 g/dl (3.4-5.0); BLOOD UREA NITROGEN 19.2 mg/dL (7-18); MAGNESIUM 2.6 mg/dL (1.8-2.4)
[2024-09-19 11:43] LABS: CREATININE 0.7 mg/dL (0.55-1.3); PHOSPHOROUS 2.6 mg/dL (2.5-4.9)
[2024-09-19 11:44] LABS: BILIRUBIN,TOTAL 0.5 mg/dL (0.2-1)
[2024-09-20 12:14] VITALS: RESP 18
[2024-09-20] MEDS: POTASSIUM CHLORIDE ORAL LIQUID 20 MEQ/15 ML PO ONE (14:31)
[2024-09-20] MEDS: POTASSIUM CHLORIDE 20 MEQ in DEXTROSE 5%-WATER - 1,000 ML IV SCH (17:40)
[2024-09-21] MEDS ORDERED: ACETAMINOPHEN 1000 MG/100 ML BAG IVPB ONE (02:09)
[2024-09-21 07:38] VITALS: TEMP 98.4
[2024-09-21 08:17] LABS: BASO % 0.5 % (0-2.0); EOS % 0.3 % (0-4.5); HEMATOCRIT 33.3 % (32.4-45.2); HEMOGLOBIN 10.4 GM/dL (10.7-15.3); LYMPH % 11.4 % (8-40); MCH 27.7 pg (25.7-33.7); MCHC 31.1 g/dl (32.0-36.0); MEAN CELL VOLUME 88.9 fl (80-96); MEAN PLT VOLUME 7.3 fl (7.5-11.1); NEUT % 81.8 % (42.8-82.8); PLATELET COUNT 468 10^3/uL (134-434); RBC 3.75 M/mm3 (3.60-5.2); RDW 14.9 % (11.6-15.6); WHITE BLOOD COUNT 15.4 K/mm3 (4.0-10.0)
[2024-09-21 08:42] VITALS: BP 125/88; PULSE 123
== END 2024-09-21 13:43 | DRG 178 ==
LOC: JER 11:46 → JERBED 15:07 → J4S 09-07 02:40
PROVIDERS: ADMIT Internal Medicine; ATTEND Internal Medicine
DX: J69.0 Pneumonitis due to inhalation of food and vomit (principal); I47.10 Supraventricular tachycardia, unspecified; I48.92 Unspecified atrial flutter; N39.0 Urinary tract infection, site not specified; R53.83 Other fatigue; G30.9 Alzheimer's disease, unspecified; F20.9 Schizophrenia, unspecified; G40.909 Epilepsy, unspecified, not intractable, without status epilepticus; I10 Essential (primary) hypertension; F02.80 Dementia in other diseases classified elsewhere, unspecified severity, without behavioral disturbance, psychotic disturbance, mood disturbance, and anxiety; E78.5 Hyperlipidemia, unspecified; R09.02 Hypoxemia; F79 Unspecified intellectual disabilities; I48.91 Unspecified atrial fibrillation; S43.004A Unspecified dislocation of right shoulder joint, initial encounter; B95.62 Methicillin resistant Staphylococcus aureus infection as the cause of diseases classified elsewhere; E87.6 Hypokalemia; X58.XXXA Exposure to other specified factors, initial encounter; Y93.89 Activity, other specified; Y92.9 Unspecified place or not applicable; Y99.9 Unspecified external cause status
CPT/HCPCS: 0241U-QW; 36415; 36600; 70450-TC; 71045-TC-FY; 71250-TC; 80048; 80053; 80175; 80177; 81003; 82803; 82962; 83605; 83735; 83880; 84100; 84484; 85025; 85610; 85730; 86850; 86900; 86901; 87040; 87086; 87186; 87635; 93005; 93010; 93306-TC; 99285-25; J0131